=== PATIENT | female | born 1990 | race American Indian/Alaskan Native ===

== ENCOUNTER 2020-01-16 01:08 | Emergency (ER) | payer MEDICAID, OTHER ==
--- NOTE | 2020-01-16 01:15 | EDM.PDOC ---
ED HPI GENERAL MEDICAL PROBLEM - General Chief Complaint: Skin Complaint Stated Complaint: INFECTED RIGHT PINKY FINGER Time Seen by Provider: 01/16/20 01:14 Source of Information: Reports: Patient History Limitations: Reports: No Limitations - History of Present Illness INITIAL COMMENTS - FREE TEXT/NARRATIVE: pt has an infected small finger. She has cut her finger nails very short. Onset: Gradual, Other ( the inflamation on the rt small finger started several days ago. ) Duration: Hour(s): Location: Reports: Upper Extremity, Right Associated Symptoms: Reports: No Other Symptoms - Related Data Allergies Allergy/AdvReac Type Severity Reaction Status Date / Time acetaminophen [From [place]] Allergy Hives Verified 01/16/20 01:19 hydrocodone [From [place]] Allergy Hives Verified 01/16/20 01:19 Penicillins Allergy Hives Verified 01/16/20 01:19 Home Meds: Home Meds NK [No Known Home Meds] 01/16/20 [History] ED ROS GENERAL - Review of Systems Review Of Systems: See Below Constitutional: Reports: No Symptoms HEENT: Reports: No Symptoms Respiratory: Reports: No Symptoms Cardiovascular: Reports: No Symptoms Endocrine: Reports: No Symptoms GI/Abdominal: Reports: No Symptoms Musculoskeletal: Reports: Other ( red inflamed small finger. ) ED EXAM, SKIN/RASH Exam: See Below Text/Narrative:: pt has a red inflamed small finger on the rt. Exam Limited By: No Limitations General Appearance: Alert Extremities: Other (pt is very anxious. She has cut her nails very short and on the rt small finger she has a infected cuticle. ) Neurological: Alert, Oriented, Normal Cognition Course - Vital Signs Last Recorded V/S: Last Vital Signs Temp 36.2 C 01/16/20 01:18 Pulse 99 01/16/20 01:18 Resp 18 01/16/20 01:18 BP 152/86 H 01/16/20 01:18 Pulse Ox 96 01/16/20 01:18 - Orders/Labs/Meds Meds: Medications Discontinued Medications Generic Name Dose Route Start Last Admin Trade Name Freq PRN Reason Stop Dose Admin Bacitracin 1 dose 01/16/20 01:38 Bacitracin Oint 1 Gm TOP 01/16/20 01:39 ONETIME ONE Ibuprofen 800 mg 01/16/20 01:37 Motrin PO 01/16/20 01:38 ONETIME ONE Lidocaine HCl 5 ml 01/16/20 01:26 01/16/20 01:38 Xylocaine-Mpf 1% INJECT 01/16/20 01:27 5 ml ONETIME ONE Administration - Re-Assessments/Exams Free Text/Narrative Re-Assessment/Exam: 01/16/20 01:38 area at the base of the nail was injected with lidocaine and a fair amount of pus was expressed. Pt soaked the finger and it was dressed with bacatracin. Departure - Departure Time of Disposition: 01:39 Disposition: Home, Self-Care 01 Condition: Fair Clinical Impression: Infected cuticle - Discharge Information Instructions: Paronychia, [id number] Referrals: PCP,None [Primary Care Provider] - Forms: ED Department Discharge Care Plan Goals: soak the finger bid in a warm soapy solution, keep covered and dress with a antibiotic ointment. Motrin 600mg tid for pain, keflex 500mg tid. Use alot of yogurt or priobiotic while on the keflex. Sepsis Event Note - Focused Exam Vital Signs: Vital Signs Temp Pulse Resp BP Pulse Ox 01/16/20 01:18 36.2 C 99 18 152/86 H 96 Date Exam was Performed: 01/16/20 Time Exam was Performed: 01:43
[2020-01-16] MEDS ORDERED: Ibuprofen 800 MG Tab PO ONE (01:37)
[2020-01-16] MEDS ORDERED: Bacitracin Oint 1 GM U/D Packet TOP ONE (01:38)
== END 2020-01-16 01:54 | disposition home or self-care (01) ==
LOC: JP.ED 01:08
DX: L03.011 Cellulitis of right finger (principal); Z88.5 Allergy status to narcotic agent; Z88.0 Allergy status to penicillin; Z88.6 Allergy status to analgesic agent
CPT/HCPCS: 64450; 99283; A9270; J2001

== ENCOUNTER 2020-03-09 14:41 | Emergency (ER) | payer MEDICAID ==
[2020-03-09] MEDS ORDERED: HYDROmorphone 0.5 MG/0.5 ML Syringe IVPUSH ONE (15:48)
--- NOTE | 2020-03-09 15:52 | EDM.PDOC ---
ED HPI GENERAL MEDICAL PROBLEM - General Chief Complaint: Abdominal Pain Stated Complaint: UPPER ABD PAIN Time Seen by Provider: 03/09/20 15:51 Source of Information: Reports: Patient, RN, RN Notes Reviewed History Limitations: Reports: No Limitations - History of Present Illness INITIAL COMMENTS - FREE TEXT/NARRATIVE: 29 yo female presents to the ED with complaints of bilateral upper abd pain since 4 or 5 this morning. She has a history of crohns since age 14 and this pain feels different than any of her episodes of crohns flare-ups. The pain is colicky and most tender to RUQ. She describes them as menstrual cramps that get severe sharp and then eases off again. Last BM was yesterday and she states it was normal. She tried aleve for the pain and that helped some. 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: - Infectious Disease History Infectious Disease History: Reports: Chicken Pox - Past Surgical History Female Surgical History: Reports: Section Social & Family History - Tobacco Use Smoking Status *Q: Current Every Day Smoker Years of Tobacco use: 8 Packs/Tins Daily: 0.5 - Caffeine Use Caffeine Use: Reports: None - Recreational Drug Use Recreational Drug Use: No ED ROS GENERAL - Review of Systems Review Of Systems: See Below Constitutional: Reports: Decreased Appetite HEENT: Reports: No Symptoms Respiratory: Reports: No Symptoms Cardiovascular: Reports: No Symptoms Endocrine: Reports: No Symptoms GI/Abdominal: Reports: Abdominal Pain, Decreased Appetite : Reports: No Symptoms Musculoskeletal: Reports: No Symptoms Skin: Reports: No Symptoms Neurological: Reports: No Symptoms Psychiatric: Reports: No Symptoms Hematologic/Lymphatic: Reports: No Symptoms Immunologic: Reports: No Symptoms ED EXAM, GI/ABD - Physical Exam Exam: See Below Exam Limited By: No Limitations General Appearance: Alert, Mild Distress Respiratory/Chest: No Respiratory Distress, Lungs Clear, Normal Breath Sounds Cardiovascular: Normal Peripheral Pulses, Regular Rate, Rhythm, No Murmur GI/Abdominal Exam: Normal Bowel Sounds, Guarding, Tender (RUQ, epigastric, and some to RLQ and LLQ), Other (+ meza sign) (Female) Exam: Deferred Back Exam: Normal Inspection Extremities: Normal Inspection Neurological: Alert, Oriented Psychiatric: Normal Affect Skin Exam: Warm, Dry Course - Vital Signs Last Recorded V/S: Last Vital Signs Temp 97.4 F 03/09/20 15:31 Pulse 106 H 03/09/20 15:31 Resp 16 03/09/20 15:31 BP 116/83 03/09/20 15:31 Pulse Ox 100 03/09/20 15:31 - Orders/Labs/Meds Orders: Active Orders 24 hr Category Date Time Status Abdomen 2V AP Flat Upright [CR] Stat Exams 03/09/20 17:15 Taken Sodium Chloride 0.9% [Saline Flush] Med 03/09/20 15:48 Active 10 ml FLUSH ASDIRECTED PRN Saline Lock Insert [OM.PC] Routine Oth 03/09/20 15:48 Ordered Medication Orders Sodium Chloride (Saline Flush) 10 ml FLUSH ASDIRECTED PRN PRN Reason: Keep Vein Open Last Admin: 03/09/20 15:56 Dose: 10 ml Admin: 03/09/20 15:55 Dose: 10 ml Labs: Laboratory Tests 03/09/20 03/09/20 Range/Units 15:52 15:52 WBC 8.2 (4.5-11.0) K/uL RBC 4.03 (3.30-5.50) M/uL Hgb 12.3 (12.0-15.0) g/dL Hct 37.4 (36.0-48.0) % MCV 93 (80-98) fL MCH 31 (27-31) pg MCHC 33 (32-36) % Plt Count 187 (150-400) K/uL Neut % (Auto) 64 (36-66) % Lymph % (Auto) 23 L (24-44) % [place] % (Auto) 4 (2-6) % Eos % (Auto) 9 H (2-4) % Baso % (Auto) 0 (0-1) % Sodium 139 L (140-148) mmol/L Potassium 4.0 (3.6-5.2) mmol/L Chloride 104 (100-108) mmol/L Carbon Dioxide 30 (21-32) mmol/L Anion Gap 9.0 (5.0-14.0) mmol/L BUN 11 (7-18) mg/dL Creatinine 0.9 (0.6-1.0) mg/dL Est Cr Clr Drug Dosing 78.21 mL/min Estimated GFR (MDRD) > 60 (>60) Glucose 112 H (74-106) mg/dL Calcium 8.6 (8.5-10.1) mg/dL Total Bilirubin 0.3 (0.2-1.0) mg/dL AST 14 L (15-37) U/L ALT 25 (12-78) U/L Alkaline Phosphatase 45 L (46-116) U/L C-Reactive Protein 0.08 (0.0-0.3) mg/dL Total Protein 6.6 (6.4-8.2) g/dL Albumin 3.8 (3.4-5.0) g/dL Globulin 2.8 (2.3-3.5) g/dL Albumin/Globulin Ratio 1.4 (1.2-2.2) Lipase 51 L (73-393) U/L Meds: Medications Generic Name Dose Route Start Last Admin Trade Name Freq PRN Reason Stop Dose Admin Sodium Chloride 10 ml 03/09/20 15:48 03/09/20 15:56 Saline Flush FLUSH 10 ml ASDIRECTED PRN Administration Keep Vein Open Discontinued Medications Generic Name Dose Route Start Last Admin Trade Name Freq PRN Reason Stop Dose Admin Hydromorphone HCl 0.5 mg 03/09/20 15:48 03/09/20 15:54 Dilaudid IVPUSH 03/09/20 15:49 0.5 mg ONETIME ONE Administration - Radiology Interpretation Free Text/Narrative:: US negative for acute gallbladder. flat and upright xray shows stool and a gas pattern consistent with constipation - Re-Assessments/Exams Free Text/Narrative Re-Assessment/Exam: 03/09/20 17:18 patient is much more comfortable now after dilaudid. Abd is soft now. flat and upright ordered. Departure - Departure Time of Disposition: 17:34 Disposition: Home, Self-Care 01 Clinical Impression: Constipation - Discharge Information *PRESCRIPTION DRUG MONITORING PROGRAM REVIEWED*: Not Applicable *COPY OF PRESCRIPTION DRUG MONITORING REPORT IN PATIENT FRANCIS: Not Applicable Instructions: Constipation, Adult, [id number] Referrals: PCP,None [Primary Care Provider] - Forms: ED Department Discharge Additional Instructions: Your xray shows a moderate amount of stool and gas. Recommend using a capful of miralax daily until you have a sufficient bowel movement. Mix miralax with water or juice. Follow up with your PCP in 3-5 days if you are not better. Call or return to the ED with any worsening of symptoms. Sepsis Event Note (ED) - Evaluation Sepsis Screening Result: No Definite Risk - Focused Exam Vital Signs: Vital Signs Temp Pulse Resp BP Pulse Ox 03/09/20 15:31 97.4 F 106 H 16 116/83 100 03/09/20 15:14 97.4 F 106 H 16 116/83 100 - My Orders Last 24 Hours: My Active Orders 03/09/20 15:48 Sodium Chloride 0.9% [Saline Flush] 10 ml FLUSH ASDIRECTED PRN Saline Lock Insert [OM.PC] Routine 03/09/20 17:15 Abdomen 2V AP Flat Upright [CR] Stat - Assessment/Plan Last 24 Hours: My Active Orders 03/09/20 15:48 Sodium Chloride 0.9% [Saline Flush] 10 ml FLUSH ASDIRECTED PRN Saline Lock Insert [OM.PC] Routine 03/09/20 17:15 Abdomen 2V AP Flat Upright [CR] Stat Plan: discharge to home. recommend miralax for constipation.
[2020-03-09] MEDS: Sodium Chloride 0.9% 10 ML Syringe FLUSH PRN ×2 (15:55→15:56)
--- NOTE | 2020-03-09 16:48 | CRLUS ---
INDICATION: Right upper quadrant pain. COMPARISON: None available. TECHNIQUE: Ultrasound examination of the right upper quadrant was performed. FINDINGS: There is normal appearance of the gallbladder, with no sign of cholelithiasis or acute cholecystitis. There is no sign of gallbladder wall thickening or pericholecystic fluid. A sonographic Reid sign is not present, but the patient was given pain medication prior to the examination. The common bile duct is normal in caliber at 4 mm. The pancreatic head and body were examined, and these are normal in appearance. The abdominal aorta and visualized portions of the inferior vena cava are normal in appearance. The liver shows no sign of mass or contour abnormality, and there is no sign of ascites. The right kidney is unremarkable. IMPRESSION: Normal right upper quadrant ultrasound. Dictated by Ganesh South MD @ Mar 09 2020 4:45PM Signed by Dr. Ganesh South @ Mar 09 2020 4:46PM
--- NOTE | 2020-03-10 09:55 | CR ---
Abdomen 2V AP Flat Upright CLINICAL HISTORY: Abdominal pain FINDINGS: No free air is seen. Small intestinal configuration is nonacute. There is significant fecal retention throughout the colon. IMPRESSION: Nonacute intestinal gas pattern Moderate fecal retention
== END 2020-03-09 17:47 | disposition home or self-care (01) ==
LOC: JP.ED 14:41
DX: K59.00 Constipation, unspecified (principal); R10.11 Right upper quadrant pain; Z88.0 Allergy status to penicillin; Z88.5 Allergy status to narcotic agent; F17.210 Nicotine dependence, cigarettes, uncomplicated
CPT/HCPCS: 36415; 74019; 76705; 80053; 83690; 85025; 86140; 96374; 99284; J1170

== ENCOUNTER 2020-05-24 14:19 | Emergency (ER) | payer MEDICAID ==
[2020-05-24] MEDS ORDERED: Ketorolac 60 MG/2 ML SDV IM ONE (15:24)
--- NOTE | 2020-05-24 15:33 | EDM.PDOC ---
ED HPI GENERAL MEDICAL PROBLEM - General Chief Complaint: ENT Problem Time Seen by Provider: 05/24/20 15:19 Source of Information: Reports: Patient, RN Notes Reviewed History Limitations: Reports: No Limitations - History of Present Illness INITIAL COMMENTS - FREE TEXT/NARRATIVE: 30-year-old female presents emergency department a complaint of dental pain and facial swelling, she states she had a broken tooth started couple days ago since then she has had increasing pain and swelling no fevers has not been able to get into the dentist Face/Facial Pain Score (Numeric/FACES): 9 - Related Data Allergies Allergy/AdvReac Type Severity Reaction Status Date / Time acetaminophen [From [place]] Allergy Hives Verified 01/16/20 01:19 hydrocodone [From [place]] Allergy Hives Verified 01/16/20 01:19 Penicillins Allergy Hives Verified 01/16/20 01:19 Home Meds: Home Meds NK [No Known Home Meds] 01/16/20 [History] Past Medical History Gastrointestinal History: Reports: Other (See Below) Other Gastrointestinal History: 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: - Infectious Disease History Infectious Disease History: Reports: Chicken Pox - Past Surgical History Female Surgical History: Reports: Section Social & Family History - Tobacco Use Smoking Status *Q: Current Every Day Smoker Years of Tobacco use: 7 Packs/Tins Daily: 0.5 - Caffeine Use Caffeine Use: Reports: Soda - Recreational Drug Use Recreational Drug Use: No ED ROS ENT - Review of Systems Review Of Systems: See Below Constitutional: Reports: No Symptoms HEENT: Reports: Dental Pain ED EXAM, ENT - Physical Exam Exam: See Below Text/Narrative:: Mouth mucosa is moist and pink no erythema exudate known soft palate tongue is midline there is midline dentition is poor molars 18 and 19 are broken she is exquisitely tender to the touch in that area I do appreciate some facial swelling on that area as well Exam Limited By: No Limitations General Appearance: Alert, Mild Distress Neck: Normal Inspection, Supple, Non-Tender, Full Range of Motion Respiratory/Chest: No Respiratory Distress Course - Vital Signs Last Recorded V/S: Last Vital Signs Temp 97.5 F 05/24/20 14:53 Pulse 91 05/24/20 14:53 Resp 18 05/24/20 14:53 BP 151/107 H 08/31/20 14:53 Pulse Ox 100 05/24/20 14:53 - Orders/Labs/Meds Meds: Medications Discontinued Medications Generic Name Dose Route Start Last Admin Trade Name Meenakshi PRN Reason Stop Dose Admin Ketorolac Tromethamine 60 mg 05/24/20 15:24 Toradol IM 05/24/20 15:25 ONETIME ONE Departure - Departure Time of Disposition: 15:33 Disposition: Home, Self-Care 01 Condition: Fair (When she restricted but she has quite did that she is she has been a bad girl mad and that) Clinical Impression: Dental abscess - Discharge Information Instructions: Dental Abscess, [id number] Referrals: PCP,None [Primary Care Provider] - Additional Instructions: Please report to the dental clinic tomorrow morning at 830 Sepsis Event Note (ED) - Evaluation Sepsis Screening Result: No Definite Risk - Focused Exam Vital Signs: Vital Signs Temp Pulse Resp BP Pulse Ox 05/24/20 14:53 97.5 F 91 18 151/107 H 100 - Assessment/Plan Plan: Assessment Acuity = acute Site and laterality = dental abscess molars 18 and 19 Etiology = bacterial cause Manifestations = none Location of injury = Home Lab values = none Plan Given Toradol injection while in the emergency department prescription written for clindamycin 300 mg every 6 x7 days in combination with Percocet 5/325 1 tab p.o. 3 times daily PRN total #10, she is set up for a consultation with the dental clinic tomorrow morning at 830 This note was dictated using [employer] voice recognition software please call with any questions on syntax or grammar.
== END 2020-05-24 15:41 | disposition home or self-care (01) ==
LOC: JP.ED 14:19
DX: K04.7 Periapical abscess without sinus (principal); F17.210 Nicotine dependence, cigarettes, uncomplicated; Z88.0 Allergy status to penicillin; Z88.5 Allergy status to narcotic agent
CPT/HCPCS: 96372; 99282; J1885

== ENCOUNTER 2020-05-25 01:56 | Emergency (ER) | payer MEDICAID ==
[2020-05-25] MEDS ORDERED: Bupivacaine 0.5%/EPINEPHrine 1:200,000 1.8 ML Cartridge INJECT ONE (02:32)
[2020-05-25] MEDS ORDERED: Clindamycin HCl 150 MG Cap PO ONE (02:38)
[2020-05-25] MEDS ORDERED: Ketorolac 60 MG/2 ML SDV IM ONE (03:01)
[2020-05-25] MEDS ORDERED: Acetaminophen/oxyCODONE 325-5 MG Tab PO STA (03:02)
--- NOTE | 2020-05-25 03:08 | EDM.PDOC ---
ED HPI GENERAL MEDICAL PROBLEM - General Chief Complaint: ENT Problem Stated Complaint: TOOTHACHE Time Seen by Provider: 05/25/20 02:30 Source of Information: Reports: Patient, RN History Limitations: Reports: No Limitations - History of Present Illness INITIAL COMMENTS - FREE TEXT/NARRATIVE: 30 yo female restricted patient was recently seen for a dental infection and was given clindamycin and Percocet. Due to being restricted was not able to get the prescriptions filled. Recently moved here from [place]. Claims she didn't know she was restricted. No fever. Has L facial swelling. Has an appt with her dentist on Sunday. Onset: Gradual Duration: Day(s):, Getting Worse Location: Reports: Face (L mandible) Quality: Reports: Ache Severity: Severe Improves with: Reports: None Worsens with: Reports: Other (time) Context: Reports: Other (See HPI) Associated Symptoms: Reports: No Other Symptoms. 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 Tooth/Teeth Pain Score (Numeric/FACES): 9 - Related Data Allergies Allergy/AdvReac Type Severity Reaction Status Date / Time acetaminophen [From [place]] Allergy Hives Verified 05/25/20 02:17 hydrocodone [From [place]] Allergy Hives Verified 05/25/20 02:17 Penicillins Allergy Hives Verified 05/25/20 02:17 Home Meds: Home Meds Acetaminophen/oxyCODONE [Percocet 325-5 MG] 1 tab PO Q6H PRN 05/25/20 [History] Clindamycin HCl 300 mg PO QID 05/25/20 [History] Past Medical History - Past Health History Medical/Surgical History: Denies Medical/Surgical History Gastrointestinal History: Reports: Other (See Below) 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: - Infectious Disease History Infectious Disease History: Reports: Chicken Pox - Past Surgical History Female Surgical History: Reports: Section Social & Family History - Tobacco Use Smoking Status *Q: Current Every Day Smoker Years of Tobacco use: 7 Packs/Tins Daily: 0.2 Used Tobacco, but Quit: No Second Hand Smoke Exposure: Yes - Caffeine Use Caffeine Use: Reports: Soda - Alcohol Use Days Per Week of Alcohol Use: 0 - Recreational Drug Use Recreational Drug Use: Yes Recreational Drug Type: Reports: Marijuana/Hashish, Other (see below) 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 ED ROS ENT - Review of Systems Review Of Systems: See Below Constitutional: Reports: No Symptoms HEENT: Reports: Dental Pain, Other (L facial swelling) Respiratory: Reports: No Symptoms Cardiovascular: Reports: No Symptoms GI/Abdominal: Reports: No Symptoms : Reports: No Symptoms Musculoskeletal: Reports: No Symptoms Skin: Reports: No Symptoms Neurological: Reports: No Symptoms ED EXAM, ENT - Physical Exam Exam: See Below Exam Limited By: No Limitations General Appearance: Alert, WD/WN, No Apparent Distress, Obese Eye Exam: Bilateral Eye: Normal Inspection Ears: Normal External Exam, Normal Canal, Hearing Grossly Normal Nose: Normal Inspection, No Blood Mouth/Throat: Dental Abcess, Dental Pain, Dental Tenderness Head: Facial Swelling (left), Facial Tenderness (left) Neck: Normal Inspection Respiratory/Chest: No Respiratory Distress, Lungs Clear, Normal Breath Sounds, No Accessory Muscle Use Cardiovascular: Regular Rate, Rhythm, No Edema Extremities: Normal Inspection Neurological: Alert, Oriented, CN II-XII Intact, Normal Cognition, No Motor/Sensory Deficits Psychiatric: Normal Affect, Anxious Skin: Warm, Dry, Intact, Normal Color, No Rash Course - Vital Signs Last Recorded V/S: Last Vital Signs Temp 36.9 C 05/25/20 02:24 Pulse 113 H 05/25/20 02:24 Resp 22 H 05/25/20 02:24 BP 171/97 H 05/25/20 02:24 Pulse Ox 98 05/25/20 02:24 - Orders/Labs/Meds Orders: Active Orders 24 hr Category Date Time Status Acetaminophen/oxyCODONE [Percocet 325-5 MG] Med 05/25/20 03:02 Stat 1 tab PO ONETIME STA Ketorolac [Toradol] Med 05/25/20 03:01 Once 60 mg IM ONETIME ONE Meds: Medications Discontinued Medications Generic Name Dose Route Start Last Admin Trade Name Marquesq PRN Reason Stop Dose Admin Bupivacaine HCl/Epinephrine Bitart 1.8 ml 05/25/20 02:32 05/25/20 02:36 Marcaine 0.5%/Epinephrine 1:200,000 INJECT 05/25/20 02:33 1.8 ml ONETIME ONE Administration Clindamycin HCl 450 mg 05/25/20 02:38 05/25/20 02:51 Cleocin PO 05/25/20 02:39 450 mg ONETIME ONE Administration Departure - Departure Time of Disposition: 03:20 Disposition: Home, Self-Care 01 Condition: Fair Clinical Impression: Dental abscess - Discharge Information *PRESCRIPTION DRUG MONITORING PROGRAM REVIEWED*: No *COPY OF PRESCRIPTION DRUG MONITORING REPORT IN PATIENT FRANCIS: No Instructions: Dental Abscess, [id number] Referrals: PCP,None [Primary Care Provider] - Additional Instructions: Contact your provider first thing in the morning to discuss if you will be allowed to get your pain med and antibiotic prescriptions filled. Take ibuprofen 600 mg every 6 hrs starting after 6 hrs from now. Add acetaminophen up to 1000 mg every 6 hrs for added relief. It is very important to restart your clindamycin when pharmacies open in the morning. Sepsis Event Note (ED) - Evaluation Sepsis Screening Result: No Definite Risk - Focused Exam Vital Signs: Vital Signs Temp Pulse Resp BP Pulse Ox 05/25/20 02:24 36.9 C 113 H 22 H 171/97 H 98 05/25/20 02:09 36.9 C 113 H 22 H 171/97 H 98 - My Orders Last 24 Hours: My Active Orders 05/25/20 03:01 Ketorolac [Toradol] 60 mg IM ONETIME ONE 05/25/20 03:02 Acetaminophen/oxyCODONE [Percocet 325-5 MG] 1 tab PO ONETIME STA - Assessment/Plan Last 24 Hours: My Active Orders 05/25/20 03:01 Ketorolac [Toradol] 60 mg IM ONETIME ONE 05/25/20 03:02 Acetaminophen/oxyCODONE [Percocet 325-5 MG] 1 tab PO ONETIME STA
== END 2020-05-25 03:29 | disposition home or self-care (01) ==
LOC: JP.ED 01:56
DX: K04.7 Periapical abscess without sinus (principal); E66.9 Obesity, unspecified; F17.210 Nicotine dependence, cigarettes, uncomplicated; Z88.0 Allergy status to penicillin; Z88.5 Allergy status to narcotic agent; Z68.34 Body mass index [BMI] 34.0-34.9, adult
CPT/HCPCS: 96372; 99282; A9270; J1885; J3490

== ENCOUNTER 2020-10-16 18:09 | Emergency (ER) | payer MEDICAID ==
--- NOTE | 2020-10-16 18:46 | EDM.PDOC ---
ED HPI GENERAL MEDICAL PROBLEM - General Chief Complaint: Gastrointestinal Problem Stated Complaint: MEDICAL/ Time Seen by Provider: 10/16/20 18:30 Source of Information: Reports: Patient History Limitations: Reports: No Limitations - History of Present Illness INITIAL COMMENTS - FREE TEXT/NARRATIVE: 30-year-old female which is found out she was within the last 2 days has developed lower abdominal pain, somewhat worse on the left side. It is painful to walk, she has also developed some dysuria. No fevers or chills, no nausea or vomiting. She has not had a history of abdominal surgeries but does have Crohn's disease. Onset: Gradual Duration: Day(s): (Pain has increased just today, yesterday she was fine) Location: Reports: Abdomen (Lower abdomen) Associated Symptoms: Reports: Other (Dysuria and urgency). Denies: Fever/Chills, Nausea/Vomiting - Related Data Allergies Allergy/AdvReac Type Severity Reaction Status Date / Time acetaminophen [From [place]] Allergy Hives Verified 10/16/20 18:44 hydrocodone [From [place]] Allergy Hives Verified 10/16/20 18:44 Penicillins Allergy Hives Verified 10/16/20 18:44 Home Meds: Home Meds #103/Iron Fumarate/Fa [ ] 1 tab PO DAILY 10/16/20 [History] Past Medical History - Past Health History Medical/Surgical History: Denies Medical/Surgical History Respiratory History: Reports: Asthma Gastrointestinal History: Reports: Other (See Below) Other Gastrointestinal History: crohns Genitourinary History: Reports: None 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: Endocrine/Metabolic History: Reports: Obesity/BMI 30+ - Infectious Disease History Infectious Disease History: Reports: Chicken Pox - Past Surgical History Head Surgeries/Procedures: Reports: None Female Surgical History: Reports: Section Endocrine Surgical History: Reports: None Dermatological Surgical History: Reports: None Social & Family History - Tobacco Use Tobacco Use Status *Q: Current Every Day Tobacco User Years of Tobacco use: 15 Packs/Tins Daily: 0.5 Used Tobacco, but Quit: No - Caffeine Use Caffeine Use: Reports: Soda - Recreational Drug Use Recreational Drug Use: Yes Drug Use in Last 12 Months: No Recreational Drug Type: Reports: Cocaine, Heroin, Marijuana/Hashish, Methamphetamine ED ROS GENERAL - Review of Systems Review Of Systems: See Below Constitutional: Reports: Malaise. Denies: Fever, Chills HEENT: Reports: No Symptoms Respiratory: Denies: Shortness of Breath Cardiovascular: Denies: Chest Pain GI/Abdominal: Reports: Abdominal Pain, Other (History of Crohn's). Denies: Nausea, Vomiting : Reports: Dysuria, Urgency Neurological: Reports: No Symptoms ED EXAM, GI/ABD - Physical Exam Exam: See Below Exam Limited By: No Limitations General Appearance: Alert, No Apparent Distress (Looks uncomfortable but not di stressed) Eyes: Bilateral: Normal Appearance Head: Atraumatic Respiratory/Chest: No Respiratory Distress, Lungs Clear Cardiovascular: Regular Rate, Rhythm. No: Tachycardia GI/Abdominal Exam: Tender (Very tender to palpation over the lower abdomen, especially suprapubic and left lower quadrant) Neurological: Alert, Oriented Psychiatric: Normal Affect, Normal Mood Course - Vital Signs Last Recorded V/S: Last Vital Signs Temp 97.2 F 10/16/20 18:20 Pulse 94 10/16/20 18:20 Resp 16 10/16/20 18:20 BP 146/80 H 10/16/20 18:20 Pulse Ox 99 10/16/20 18:20 - Orders/Labs/Meds Orders: Active Orders 24 hr Category Date Time Status CULTURE URINE [RM] Stat Lab 10/16/20 19:39 Received Labs: Laboratory Tests 10/16/20 10/16/20 10/16/20 Range/Units 18:40 18:53 18:53 WBC 9.6 (4.5-11.0) K/uL RBC 4.42 (3.30-5.50) M/uL Hgb 13.7 (12.0-15.0) g/dL Hct 41.2 (36.0-48.0) % MCV 93 (80-98) fL MCH 31 (27-31) pg MCHC 33 (32-36) % Plt Count 213 (150-400) K/uL Neut % (Auto) 67 H (36-66) % Lymph % (Auto) 23 L (24-44) % [place] % (Auto) 6 (2-6) % Eos % (Auto) 4 (2-4) % Baso % (Auto) 0 (0-1) % Sodium 137 L (140-148) mmol/L Potassium 3.6 (3.6-5.2) mmol/L Chloride 99 L (100-108) mmol/L Carbon Dioxide 27 (21-32) mmol/L Anion Gap 14.6 H (5.0-14.0) mmol/L BUN 10 (7-18) mg/dL Creatinine 0.7 (0.6-1.0) mg/dL Est Cr Clr Drug Dosing 103.82 mL/min Estimated GFR (MDRD) > 60 (>60) Glucose 85 (74-106) mg/dL Calcium 9.4 (8.5-10.1) mg/dL Total Bilirubin 0.7 D (0.2-1.0) mg/dL AST 17 (15-37) U/L ALT 21 (12-78) U/L Alkaline Phosphatase 53 (46-116) U/L Total Protein 8.0 (6.4-8.2) g/dL Albumin 4.2 (3.4-5.0) g/dL Globulin 3.8 H (2.3-3.5) g/dL Albumin/Globulin Ratio 1.1 L (1.2-2.2) HCG, Quant 492 H (0-6) mIU/mL Urine Color Yellow (YELLOW) Urine Appearance Slightly cloudy A (CLEAR) Urine pH 6.5 (5.0-8.0) Ur Specific [place] 1.025 (1.008-1.030) Urine Protein Negative (NEGATIVE) mg/dL Urine Glucose (UA) Negative (NEGATIVE) mg/dL Urine Ketones 15 H (NEGATIVE) mg/dL Urine Occult Blood Moderate H (NEGATIVE) Urine Nitrite Negative (NEGATIVE) Urine Bilirubin Negative (NEGATIVE) Urine Urobilinogen 0.2 (0.2-1.0) EU/dL Ur Leukocyte Esterase Trace H (NEGATIVE) Urine RBC 5-10 H (0-5) Urine WBC 0-5 (0-5) Ur Epithelial Cells Many Amorphous Sediment Rare Urine Bacteria Many Urine Mucus Rare - Re-Assessments/Exams Free Text/Narrative Re-Assessment/Exam: 10/16/20 18:46 UA was obtained, also CBC CMP and quantitative beta-hCG. If the level is high enough, an ultrasound may be needed to rule out ectopic on the left. 10/16/20 19:36 CBC is normal, UA shows many bacteria and some WBCs. Quantitative beta-hCG is only 490, the patient thinks she is roughly 6 to 7 weeks gestation so this could be some early pain from a developing miscarriage. She will be placed on Macrobid for the UTI, a culture obtained, and if symptoms persist or worsen she should recheck her beta-hCG level in 2 to 3 days. She may just vaginal bleeding and miscarriage, if that is the case no follow-up absolutely necessary, she may just let the process develop. I recommended some ibuprofen for discomfort. Departure - Departure Time of Disposition: 19:42 Disposition: Home, Self-Care 01 Clinical Impression: Lower abdominal pain, Early stage of UTI (urinary tract infection) Qualifiers: Urinary tract infection type: acute cystitis Hematuria presence: without hematuria Qualified Code(s): N30.00 - Acute cystitis without hematuria - Discharge Information Instructions: Urinary Tract Infection, Adult Referrals: PCP,None [Primary Care Provider] - Forms: ED Department Discharge Care Plan Goals: Take antibiotic twice daily as prescribed, ibuprofen will help with cramping and pain and return in 2 to 3 days if not improving for recheck of blood work. Return sooner if worsening such as developing fever, increased pain or other concerns. Sepsis Event Note (ED) - Evaluation Sepsis Screening Result: No Definite Risk - Focused Exam Vital Signs: Vital Signs Temp Pulse Resp BP Pulse Ox 10/16/20 18:20 97.2 F 94 16 146/80 H 99 10/16/20 18:19 97.2 F 94 16 146/80 H 99 - My Orders Last 24 Hours: My Active Orders 10/16/20 19:39 CULTURE URINE [RM] Stat - Assessment/Plan Last 24 Hours: My Active Orders 10/16/20 19:39 CULTURE URINE [RM] Stat
== END 2020-10-16 19:59 | disposition home or self-care (01) ==
LOC: JP.ED 18:09
DX: O23.11 Infections of bladder in pregnancy, first trimester (principal); J45.909 Unspecified asthma, uncomplicated; E66.9 Obesity, unspecified; Z72.0 Tobacco use; Z68.32 Body mass index [BMI] 32.0-32.9, adult; Z88.6 Allergy status to analgesic agent; Z88.5 Allergy status to narcotic agent; Z88.0 Allergy status to penicillin
CPT/HCPCS: 36415; 80053; 81001; 84702; 85025; 87086; 99283; 99284

== ENCOUNTER 2021-06-16 10:50 | Inpatient (IN) | payer MEDICAID ==
[2021-06-16] MEDS ORDERED: Methylergonovine 0.2 MG/1 ML Amp ONE (10:57)
[2021-06-16] MEDS ORDERED: Misoprostol 200 MCG Tab ONE (10:57)
[2021-06-16] MEDS ORDERED: Carboprost Tromethamine 250 MCG/1 ML Amp ONE (10:57)
[2021-06-16] MEDS ORDERED: Methylergonovine 0.2 MG/1 ML Amp IM ONE (11:00)
[2021-06-16] MEDS ORDERED: Misoprostol 200 MCG Tab RECTAL ONE (11:18)
[2021-06-16] MEDS ORDERED: Sodium Chloride 0.9% 10 ML Syringe FLUSH PRN (11:27)
[2021-06-16] MEDS ORDERED: Tranexamic Acid 1,000 MG in Sodium Chloride 0.9% 50 ML IV ONE (12:00)
--- NOTE | 2021-06-16 12:09 | PCM.LDHP ---
<Almaz Zavala - Last Filed: 06/16/21 12:25> L&D History of Present Illness - General Date of Service: 06/16/21 Admit Problem/Dx: Patient Status Order with Admit Dx/Problem 06/16/21 11:27 Patient Status [ADT] Routine Admission Diagnosis/Problem Admission Diagnosis/Problem Source of Information: Patient History Limitations: Reports: No Limitations - History of Present Illness Introduction:: 06/16/21 Amita came in today around 10:300 after leaving AMA from triage last night. She was in triage because she was kenzie and feeling shortness of breath and chest pain after smoking "bad weed". She has an unknown amount of care, she states the last time she saw a provider was for her 20 week anatomy scan which she states was normal. She believes she is 38 weeks and states that she has not used any drugs since last night. Currently she is in active labor, SVE for 10cm with a bulging bag of water. AROM for mec stained fluid. - Related Data Allergies/Adverse Reactions: Allergies Allergy/AdvReac Type Severity Reaction Status Date / Time acetaminophen [From [place]] Allergy Hives Verified 10/16/20 18:44 hydrocodone [From [place]] Allergy Hives Verified 10/16/20 18:44 Penicillins Allergy Hives Verified 10/16/20 18:44 Home Medications: Home Meds #103/Iron Fumarate/Fa [ ] 1 tab PO DAILY 10/16/20 [History] Past Medical History - Past Health History Medical/Surgical History: Denies Medical/Surgical History Respiratory History: Reports: Asthma Gastrointestinal History: Reports: Other (See Below) Other Gastrointestinal History: crohns Genitourinary History: Reports: None [employer]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: Endocrine/Metabolic History: Reports: Obesity/BMI 30+ - Infectious Disease History Infectious Disease History: Reports: Chicken Pox - Past Surgical History Head Surgeries/Procedures: Reports: None Female Surgical History: Reports: Section Endocrine Surgical History: Reports: None Dermatological Surgical History: Reports: None Social & Family History - Caffeine Use Caffeine Use: Reports: Soda H&P Review of Systems - Review of Systems: Review Of Systems: See Below General: Reports: No Symptoms HEENT: Reports: No Symptoms Pulmonary: Reports: No Symptoms Cardiovascular: Reports: No Symptoms Gastrointestinal: Reports: No Symptoms Genitourinary: Reports: No Symptoms Musculoskeletal: Reports: No Symptoms Skin: Reports: No Symptoms Psychiatric: Reports: No Symptoms Neurological: Reports: No Symptoms Hematologic/Lymphatic: Reports: No Symptoms Immunologic: Reports: No Symptoms L&D Exam - Exam Exam: See Below - OB Specific Contraction Intensity: Strong Movement: Not Appreciated Heart Tones: Not [place] (unable to trace FHT with precipitous delivery) - Exam General: Alert, Oriented, Severe Distress HEENT: PERRLA, Conjunctiva Clear, EOMI, Hearing Intact, Mucosa Moist & [place], Nares Patent Neck: Supple Lungs: Normal Respiratory Effort Cardiovascular: Regular Rate GI/Abdominal Exam: Non-Tender Rectal Exam: Normal Exam Genitourinary: Normal external exam Back Exam: Full Range of Motion Extremities: Normal Range of Motion, No Pedal Edema Skin: Warm, Dry, Intact Neurological: Cranial Nerves Intact Psychiatric: Alert, Normal Affect, Normal Mood - Patient Data Lab Results Last 24 hrs: Laboratory Results - last 24 hr 06/16/21 Range/Units 11:27 WBC 11.9 H (4.5-11.0) K/uL RBC 3.63 (3.30-5.50) M/uL Hgb 10.7 L D (12.0-15.0) g/dL Hct 32.1 L (36.0-48.0) % MCV 88 (80-98) fL MCH 30 (27-31) pg MCHC 33 (32-36) % Plt Count 203 (150-400) K/uL Neut % (Auto) 74.5 H (36-66) % Lymph % (Auto) 20.2 L (24-44) % [place] % (Auto) 4.7 (2-6) % Eos % (Auto) 0.5 L (2-4) % Baso % (Auto) 0.1 (0-1) % Result Diagrams: 06/16/21 11:27 - Problem List (1) SNOMED Code(s): 35258051 ICD Code: Z34.90 - ENCNTR FOR SUPRVSN OF NORMAL , UNSP, UNSP TRIMESTER Status: Acute Current Visit: Yes Qualifiers: Weeks of gestation: 38 weeks Qualified Code(s): Z3A.38 - 38 weeks gestation of (2) Limited care in third trimester SNOMED Code(s): 491739222, 505974636 ICD Code: O09.33 - SUPRVSN OF PREG W INSUFFICIENT ANTENAT CARE, THIRD TRIMESTER Status: Acute Current Visit: Yes (3) Drug use affecting in third trimester SNOMED Code(s): 79929150, 31304245, 447258490 ICD Code: O99.323 - DRUG USE COMPLICATING , THIRD TRIMESTER Status: Acute Current Visit: Yes Problem List Initiated/Reviewed/Updated: Yes Orders Last 24hrs: Active Orders 24 hr Category Date Time Status Patient Status [ADT] Routine ADT 06/16/21 11:27 Active Communication Order [RC] ASDIRECTED Care 06/16/21 11:27 Active Heart Tones [RC] PER UNIT ROUTINE Care 06/16/21 11:27 Active Non Stress Test [RC] Click to Edit Care 06/16/21 11:27 Active Notify Provider Vital Signs [RC] PRN Care 06/16/21 11:27 Active Notify Provider [RC] PRN Care 06/16/21 11:27 Active Up ad [place] [RC] ASDIRECTED Care 06/16/21 11:27 Active Vital Signs [RC] PER UNIT ROUTINE Care 06/16/21 11:27 Active DRUG SCREEN, URINE [URCHEM] Urgent Lab 06/16/21 11:27 Ordered RED BLOOD CELLS LP [BBK] Routine Lab 06/16/21 11:07 Received TYPE AND SCREEN [BBK] Routine Lab 06/16/21 11:07 Received UA W/MICROSCOPIC [URIN] Urgent Lab 06/16/21 11:27 Ordered Oxytocin/Normal Saline [Pitocin in NS 20 Units/1,000 ML Med 06/16/21 11:30 Active ] 20 unit in 1,000 ml IV TITRATE Sodium Chloride 0.9% [Saline Flush] Med 06/16/21 11:27 Active 10 ml FLUSH ASDIRECTED PRN Saline Lock Insert [OM.PC] Routine Oth 06/16/21 11:27 Ordered Resuscitation Status Routine Resus Stat 06/16/21 11:27 Ordered Medication Orders Oxytocin/Sodium Chloride (Pitocin In Ns 20 Units/1,000 Ml) 20 unit in 1,000 mls @ 2,997 mls/hr IV TITRATE JENNIFER; Protocol Sodium Chloride (Sodium Chloride 0.9% 10 Ml Syringe) 10 ml FLUSH ASDIRECTED PRN PRN Reason: Keep Vein Open Assessment/Plan Comment:: 06/16/21 Assessment: 31 year old GP at 38 weeks gestation per pt Limited care Mother admits to THC use in last 24 hours Active labor progressing rapidly Mec stained fluid at AROM Plan: Anticipate precipitous vaginal delivery Type and screen, CBC and COVID swab on admit Continuous EFM <Trixie Cardoza - Last Filed: 06/16/21 12:34> L&D History of Present Illness - General Admit Problem/Dx: Patient Status Order with Admit Dx/Problem 06/16/21 11:27 Patient Status [ADT] Routine Admission Diagnosis/Problem Admission Diagnosis/Problem - Patient Data Lab Results Last 24 hrs: Laboratory Results - last 24 hr 06/16/21 06/16/21 Range/Units 11:07 11:27 WBC 11.9 H (4.5-11.0) K/uL RBC 3.63 (3.30-5.50) M/uL Hgb 10.7 L D (12.0-15.0) g/dL Hct 32.1 L (36.0-48.0) % MCV 88 (80-98) fL MCH 30 (27-31) pg MCHC 33 (32-36) % Plt Count 203 (150-400) K/uL Neut % (Auto) 74.5 H (36-66) % Lymph % (Auto) 20.2 L (24-44) % [place] % (Auto) 4.7 (2-6) % Eos % (Auto) 0.5 L (2-4) % Baso % (Auto) 0.1 (0-1) % Blood Type A POSITIVE Gel Antibody Screen Negative Crossmatch See Detail Result Diagrams: 06/16/21 11:27 - Problem List (1) Social problem SNOMED Code(s): 400991517 ICD Code: Z65.9 - PROBLEM RELATED TO UNSPECIFIED PSYCHOSOCIAL CIRCUMSTANCES Status: Acute Current Visit: Yes (2) Meconium in amniotic fluid SNOMED Code(s): 474550615 ICD Code: P96.83 - MECONIUM STAINING Status: Acute Current Visit: Yes (3) Drug use affecting in third trimester SNOMED Code(s): 01649610, 14927986, 804112153 ICD Code: O99.323 - DRUG USE COMPLICATING , THIRD TRIMESTER Status: Acute Current Visit: Yes (4) Limited care in third trimester SNOMED Code(s): 589242393, 110864793 ICD Code: O09.33 - SUPRVSN OF PREG W INSUFFICIENT ANTENAT CARE, THIRD TRIMESTER Status: Acute Current Visit: Yes (5) SNOMED Code(s): 62185513 ICD Code: Z34.90 - ENCNTR FOR SUPRVSN OF NORMAL , UNSP, UNSP TRIMESTER Status: Acute Current Visit: Yes Qualifiers: Weeks of gestation: 38 weeks Qualified Code(s): Z3A.38 - 38 weeks gestation of Problem List Initiated/Reviewed/Updated: Yes Orders Last 24hrs: Active Orders 24 hr Category Date Time Status Patient Status [ADT] Routine ADT 06/16/21 11:27 Active Communication Order [RC] ASDIRECTED Care 06/16/21 11:27 Active Heart Tones [RC] PER UNIT ROUTINE Care 06/16/21 11:27 Active Non Stress Test [RC] Click to Edit Care 06/16/21 11:27 Active Notify Provider Vital Signs [RC] PRN Care 06/16/21 11:27 Active Notify Provider [RC] PRN Care 06/16/21 11:27 Active Up ad [place] [RC] ASDIRECTED Care 06/16/21 11:27 Active Vital Signs [RC] PER UNIT ROUTINE Care 06/16/21 11:27 Active CORONAVIRUS COVID-19 RAPID [MOLEC] Routine Lab 06/16/21 12:04 Ordered DRUG SCREEN, URINE [URCHEM] Urgent Lab 06/16/21 11:27 Ordered PATIENT RETYPE [BBK] Routine Lab 06/16/21 11:07 Results RED BLOOD CELLS LP [BBK] Routine Lab 06/16/21 11:07 Results TYPE AND SCREEN [BBK] Routine Lab 06/16/21 11:07 Results UA W/MICROSCOPIC [URIN] Urgent Lab 06/16/21 11:27 Ordered Ibuprofen [Motrin] Med 06/16/21 12:26 Active 600 mg PO Q8H PRN Oxytocin/Normal Saline [Pitocin in NS 20 Units/1,000 ML Med 06/16/21 11:30 Active ] 20 unit in 1,000 ml IV TITRATE Sodium Chloride 0.9% [Saline Flush] Med 06/16/21 11:27 Active 10 ml FLUSH ASDIRECTED PRN Saline Lock Insert [OM.PC] Routine Oth 06/16/21 11:27 Ordered Resuscitation Status Routine Resus Stat 06/16/21 11:27 Ordered Medication Orders Oxytocin/Sodium Chloride (Pitocin In Ns 20 Units/1,000 Ml) 20 unit in 1,000 mls @ 2,997 mls/hr IV TITRATE JENNIFER; Protocol Last Admin: 06/16/21 10:55 Dose: 999 munits/min, 2,997 mls/hr Documented by: CHARBEL Ibuprofen (Ibuprofen 600 Mg Tab) 600 mg PO Q8H PRN PRN Reason: Pain Sodium Chloride (Sodium Chloride 0.9% 10 Ml Syringe) 10 ml FLUSH ASDIRECTED PRN PRN Reason: Keep Vein Open Assessment/Plan Comment:: 06/16/2021 NAYA Webster participated in assessment and admission of patient, I was in attendance for all assessments and procedures and attest that I reviewed the delivery report and documentation and it is accurate as written. Trixie Cardoza [id number]
[2021-06-16] MEDS ORDERED: Ibuprofen 600 MG Tab PO PRN (12:26)
[2021-06-16] MEDS ORDERED: Witch Hazel Medicated Pads 100/Jar TOP ONE (12:44)
[2021-06-16] MEDS ORDERED: Acetaminophen 325 MG Tab PO PRN (12:44)
[2021-06-16] MEDS ORDERED: Lanolin 100% Cream 40 GM Tube TOP ONE (12:44)
[2021-06-16] MEDS ORDERED: Benzocaine 20% Top Spray 56 GM Bottle TOP PRN (12:44)
[2021-06-16] MEDS ORDERED: Acetaminophen 325 MG Tab PO SCH (12:45)
--- NOTE | 2021-06-16 14:51 | PCM.DEL ---
L & D Note - General Info Date of Service: 06/16/21 - Delivery Note Labor: Spontaneous Delivery Outcome: Livebirth Delivery Method: Spontaneous Vaginal Delivery-Single Delivery Mode: Spontaneous Presentation: Vertex Nuchal Cord: Present, Reduced Anesthesia Type: None Amniotic Fluid Description: Meconium Stained Episiotomy Type: None Laceration: 1st Degree Placenta: Intact, Spontaneous, Clot Cord: 3 Vessels Estimated Blood Loss: 1,000 Resuscitation Needed: No : Bulb Syringe, Stimulated, Warmed, [place] Used Provider: Trixie Cardoza (Jet Almaraz assisted) Score 1 min: 8 Score 5 min: 9 Post Delivery Events: Hemorrhage Second Stage Interventions: Reports: Second Nurse Assessed Progress of Descent, Encouragement Given, Pushing Effectively, Pushing Involuntarily, Pushing, McRobert's Position Delivery Comments (Free Text/Narrative):: 06/16/2021 31 yo at suspected 38 5/7 gestational weeks came in laboring after leaving AMA earlier in am. She came into labor and delivery complete with bulging bag of fluid coming out of vaginal opening. Patient admitted to using marijuana during the night and states it was "bad weed". She thinks her labor started sometime around when she came in initially during the night. At this time she is now out of control, screaming in pain, not cooperative. With the help of nurses we were able get her to allow an SVE by provider, AROM was completed with meconium fluid. Patient then began to yell out and we directed her to push. Patient proceeded to crawl back in the bed making a poor leah for delivery of the head. Once head was delivered it was noted to have a nuchal cord times one, which was easily reduced. Then due to position of mom and cooperation of mother the shoulders would not restitute to come under the pelvis, with Alecia and Suprapubic the shoulder released and infant was delivered, cord was double clamped and cut then infant was brought to warmer for initial assessment. Second provider was in room to assist along with multiple other staff. After infant was delivered patient began to bleed heavily. tension was put on the umbilical cord and uterine massage to get placenta out. Placenta came believed to be intact, was meconium stained, with large clots and trickle of blood after. Bleed continued to be a slow trickle, patient was still not being cooperative or allowing us to do a vaginal exam. Pitocin was started IV wide open, hemorrhage kit was pulled, patient continued to bleed, fundal massage done, methergine given, cytotec given all per protocol. Inspected vaginal vault with manual and large clots removed. Bleeding began to slow with this and fundal massage. Patient still would not allow a vaginal inspection, was believed to have at least a perineal laceration but patient would not allow us to repair or inspect for any other lacerations. Since bleeding had slowed was brought to mother of to hold. Weight done of all bleeding that was not on floor or bed-Total EBL during entire time was approximately-1750ml. APGARS-8/9, weight-7lbs 4oz, length-19.5 inches, three vessel cord, unsure of lacerations due to patient refusal to inspect. Stages of labor- [id number] - General Info Date of Service: 06/16/21 Functional Status: Reports: Pain Controlled - Review of Systems General: Reports: No Symptoms HEENT: Reports: No Symptoms Pulmonary: Reports: No Symptoms Cardiovascular: Reports: No Symptoms Gastrointestinal: Reports: No Symptoms Genitourinary: Reports: No Symptoms Musculoskeletal: Reports: No Symptoms Skin: Reports: No Symptoms Neurological: Reports: No Symptoms Psychiatric: Reports: No Symptoms - Patient Data Vitals - Most Recent: Last Vital Signs Temp 37.4 C 06/16/21 13:00 Pulse 110 H 06/16/21 13:00 Resp 18 06/16/21 13:00 BP 127/80 06/16/21 12:18 Pulse Ox 100 06/16/21 13:00 Weight - Most Recent: 136.078 kg Lab Results Last 24 Hours: Laboratory Results - last 24 hr 06/16/21 06/16/21 06/16/21 Range/Units 11:07 11:27 11:27 WBC (4.5-11.0) K/uL RBC (3.30-5.50) M/uL Hgb (12.0-15.0) g/dL Hct (36.0-48.0) % MCV (80-98) fL MCH (27-31) pg MCHC (32-36) % Plt Count (150-400) K/uL Neut % (Auto) (36-66) % Lymph % (Auto) (24-44) % [place] % (Auto) (2-6) % Eos % (Auto) (2-4) % Baso % (Auto) (0-1) % Urine Color Red A (YELLOW) Urine Appearance Cloudy A (CLEAR) Urine pH 6.5 (5.0-8.0) Ur Specific [place] >= 1.030 (1.008-1.030) Urine Protein >=300 H (NEGATIVE) mg/dL Urine Glucose (UA) 100 H (NEGATIVE) mg/dL Urine Ketones 40 H (NEGATIVE) mg/dL Urine Occult Blood Large H (NEGATIVE) Urine Nitrite Negative (NEGATIVE) Urine Bilirubin Small H (NEGATIVE) Urine Urobilinogen 0.2 (0.2-1.0) EU/dL Ur Leukocyte Esterase Negative (NEGATIVE) Urine RBC Packed H (0-5) Urinalysis Comment Urine Opiates Screen Negative (NEGATIVE) Ur Oxycodone Screen Negative (NEGATIVE) Urine Methadone Screen Presumptive positive H (NEGATIVE) Ur Propoxyphene Screen Negative (NEGATIVE) Ur Barbiturates Screen Negative (NEGATIVE) Ur Tricyclics Screen Presumptive positive H (NEGATIVE) Ur Phencyclidine Scrn Negative (NEGATIVE) Ur Amphetamine Screen Presumptive positive H (NEGATIVE) U Methamphetamines Scrn Presumptive positive H (NEGATIVE) Urine MDMA Screen Negative (NEGATIVE) U Benzodiazepines Scrn Negative (NEGATIVE) U Cocaine Metab Screen Negative (NEGATIVE) U Marijuana (THC) Screen Presumptive positive H (NEGATIVE) SARS CoV-2 RNA Rapid DERIK Blood Type A POSITIVE Gel Antibody Screen Negative Crossmatch See Detail 06/16/21 06/16/21 Range/Units 11:27 12:04 WBC 11.9 H (4.5-11.0) K/uL RBC 3.63 (3.30-5.50) M/uL Hgb 10.7 L D (12.0-15.0) g/dL Hct 32.1 L (36.0-48.0) % MCV 88 (80-98) fL MCH 30 (27-31) pg MCHC 33 (32-36) % Plt Count 203 (150-400) K/uL Neut % (Auto) 74.5 H (36-66) % Lymph % (Auto) 20.2 L (24-44) % [place] % (Auto) 4.7 (2-6) % Eos % (Auto) 0.5 L (2-4) % Baso % (Auto) 0.1 (0-1) % Urine Color (YELLOW) Urine Appearance (CLEAR) Urine pH (5.0-8.0) Ur Specific [place] (1.008-1.030) Urine Protein (NEGATIVE) mg/dL Urine Glucose (UA) (NEGATIVE) mg/dL Urine Ketones (NEGATIVE) mg/dL Urine Occult Blood (NEGATIVE) Urine Nitrite (NEGATIVE) Urine Bilirubin (NEGATIVE) Urine Urobilinogen (0.2-1.0) EU/dL Ur Leukocyte Esterase (NEGATIVE) Urine RBC (0-5) Urinalysis Comment Urine Opiates Screen (NEGATIVE) Ur Oxycodone Screen (NEGATIVE) Urine Methadone Screen (NEGATIVE) Ur Propoxyphene Screen (NEGATIVE) Ur Barbiturates Screen (NEGATIVE) Ur Tricyclics Screen (NEGATIVE) Ur Phencyclidine Scrn (NEGATIVE) Ur Amphetamine Screen (NEGATIVE) U Methamphetamines Scrn (NEGATIVE) Urine MDMA Screen (NEGATIVE) U Benzodiazepines Scrn (NEGATIVE) U Cocaine Metab Screen (NEGATIVE) U Marijuana (THC) Screen (NEGATIVE) SARS CoV-2 RNA Rapid DERIK Negative Blood Type Gel Antibody Screen Crossmatch Med Orders - Current: Current Medications Acetaminophen (Acetaminophen 325 Mg Tab) 650 mg PO DAILY [facility] Last Admin: 06/16/21 13:50 Dose: Not Given Documented by: Acetaminophen (Acetaminophen 325 Mg Tab) 650 mg PO Q4H PRN PRN Reason: mild pain or fever Benzocaine (Benzocaine 20% Top [place] 56 Gm Bottle) 0 gm TOP Q4H PRN PRN Reason: PERINEAL PAIN Oxytocin/Sodium Chloride (Pitocin In Ns 20 Units/1,000 Ml) 20 unit in 1,000 mls @ 2,997 mls/hr IV TITRATE JENNIFER; Protocol Last Admin: 06/16/21 10:55 Dose: 999 munits/min, 2,997 mls/hr Documented by: Ibuprofen (Ibuprofen 600 Mg Tab) 600 mg PO Q8H PRN PRN Reason: Pain Sodium Chloride (Sodium Chloride 0.9% 10 Ml Syringe) 10 ml FLUSH ASDIRECTED PRN PRN Reason: Keep Vein Open Discontinued Medications Carboprost Tromethamine (Carboprost Tromethamine 250 Mcg/1 Ml Amp) Confirm Administered Dose 250 mcg .ROUTE .STK-MED ONE Stop: 06/16/21 10:58 Last Admin: 06/16/21 11:25 Dose: Not Given Documented by: Emollient Ointment (Lanolin 100% Cream 40 Gm Tube) 1 gm TOP ONETIME ONE Stop: 06/16/21 12:45 Last Admin: 06/16/21 13:50 Dose: Not Given Documented by: Oxytocin/Sodium Chloride (Pitocin In Ns 20 Units/1,000 Ml) Confirm Administered Dose 20 unit in 1,000 mls @ as directed .ROUTE .STK-MED ONE Stop: 06/16/21 10:56 Last Admin: 06/16/21 11:24 Dose: Not Given Documented by: Tranexamic Acid 1,000 mg/ (Sodium Chloride) 60 mls @ 240 mls/hr IV ONETIME ONE Stop: 06/16/21 12:14 Last Admin: 06/16/21 12:13 Dose: 240 mls/hr Documented by: Methylergonovine Maleate (Methylergonovine 0.2 Mg/1 Ml Amp) Confirm Administered Dose 0.2 mg .ROUTE .STK-MED ONE Stop: 06/16/21 10:58 Last Admin: 06/16/21 11:25 Dose: Not Given Documented by: Methylergonovine Maleate (Methylergonovine 0.2 Mg/1 Ml Amp) 0.2 mg IM ONETIME ONE Stop: 06/16/21 11:01 Last Admin: 06/16/21 12:12 Dose: 0.2 mg Documented by: Misoprostol (Misoprostol 200 Mcg Tab) Confirm Administered Dose 800 mcg .ROUTE .STK-MED ONE Stop: 06/16/21 10:58 Last Admin: 06/16/21 11:24 Dose: Not Given Documented by: Misoprostol (Misoprostol 200 Mcg Tab) 800 mcg RECTAL ONETIME ONE Stop: 06/16/21 11:19 Last Admin: 06/16/21 12:12 Dose: 800 mcg Documented by: Neha Bridges (Neha Bridges Medicated Pads 100/Jar) 1 pad TOP ONETIME ONE Stop: 06/16/21 12:45 Last Admin: 06/16/21 13:50 Dose: Not Given Documented by: - Exam General: Alert, Oriented HEENT: Pupils Equal, Pupils Reactive, EOMI, Mucous Membr. Moist/[place] Neck: Supple Lungs: Clear to Auscultation, Normal Respiratory Effort Cardiovascular: Regular Rate, Regular Rhythm GI/Abdominal Exam: Normal Bowel Sounds, Soft, Non-Tender, No Organomegaly, No Distention, No Abnormal Bruit, No Mass, Pelvis Stable (Female) Exam: Normal External Exam, Normal Speculum Exam, Normal Bimanual Exam Back Exam: Normal Inspection, Full Range of Motion Extremities: Normal Inspection, Normal Range of Motion, Non-Tender, No Pedal Edema, Normal Capillary Refill Skin: Warm, Dry, Intact Neurological: No New Focal Deficit Psy/Mental Status: Alert, Normal Affect, Normal Mood - Problem List & Annotations (1) Social problem SNOMED Code(s): 386258885 Code(s): Z65.9 - PROBLEM RELATED TO UNSPECIFIED PSYCHOSOCIAL CIRCUMSTANCES Status: Acute Current Visit: Yes (2) Meconium in amniotic fluid SNOMED Code(s): 588102681 Code(s): P96.83 - MECONIUM STAINING Status: Acute Current Visit: Yes (3) Drug use affecting in third trimester SNOMED Code(s): 51717211, 44011479, 222055206 Code(s): O99.323 - DRUG USE COMPLICATING , THIRD TRIMESTER Status: Acute Current Visit: Yes (4) Limited care in third trimester SNOMED Code(s): 158613922, 536820478 Code(s): O09.33 - SUPRVSN OF PREG W INSUFFICIENT ANTENAT CARE, THIRD TRIMESTER Status: Acute Current Visit: Yes (5) SNOMED Code(s): 99933303 Code(s): Z34.90 - ENCNTR FOR SUPRVSN OF NORMAL , UNSP, UNSP TRIMESTER Status: Acute Current Visit: Yes Qualifiers: Weeks of gestation: 38 weeks Qualified Code(s): Z3A.38 - 38 weeks gestation of (6) Drug abuse and dependence SNOMED Code(s): 1368445 Code(s): F19.20 - OTHER PSYCHOACTIVE SUBSTANCE DEPENDENCE, UNCOMPLICATED Status: Acute Current Visit: Yes (7) History of SNOMED Code(s): 589816793 Code(s): Z87.59 - PERSONAL HISTORY OF COMP OF PREG, CHLDBRTH AND THE PUERP Status: Acute Current Visit: Yes (8) hemorrhage, delivered SNOMED Code(s): 87761499, 683344499 Code(s): O72.1 - OTHER IMMEDIATE HEMORRHAGE Status: Acute Current Visit: Yes (9) (vaginal after ) SNOMED Code(s): 401045316 Code(s): O34.219 - MATERNAL CARE FOR UNSP TYPE SCAR FROM PREVIOUS DEL Status: Acute Current Visit: Yes - Problem List Review Problem List Initiated/Reviewed/Updated: Yes - My Orders Last 24 Hours: My Active Orders 06/16/21 11:07 PATIENT RETYPE [BBK] Routine RED BLOOD CELLS LP [BBK] Routine TYPE AND SCREEN [BBK] Routine 06/16/21 11:27 Patient Status [ADT] Routine Communication Order [RC] ASDIRECTED Non Stress Test [RC] Click to Edit Notify Provider Vital Signs [RC] PRN Notify Provider [RC] PRN Up ad [place] [RC] ASDIRECTED Vital Signs [RC] PER UNIT ROUTINE Sodium Chloride 0.9% [Saline Flush] 10 ml FLUSH ASDIRECTED PRN Saline Lock Insert [OM.PC] Routine Resuscitation Status Routine 06/16/21 11:30 Oxytocin/Normal Saline [Pitocin in NS 20 Units/1,000 ML] 20 unit in 1,000 ml IV TITRATE 06/16/21 12:26 Ibuprofen [Motrin] 600 mg PO Q8H PRN 06/16/21 12:44 Acetaminophen [TylenoL] 650 mg PO Q4H PRN Benzocaine [[id number] 20% [place]] See Dose Instructions TOP Q4H PRN Assess Lochia [WOMSER] Per Unit Routine Assess Uterine Involution [WOMSER] Per Unit Routine 06/16/21 12:45 Patient Status [ADT] Routine Vital Signs [RC] PFP Acetaminophen [TylenoL] 650 mg PO DAILY 06/16/21 12:46 Perineal Care [OM.PC] Per Unit Routine - Assessment Assessment:: 06/16/2021 31 yo [id number] delivered a viable female infant at approximately 38 5/7 gestational weeks Insufficient care UDS positive History of History of drug dependence and treatment History of Meconium Fluid Unknown GBS status Social Problem - Plan Plan:: 06/16/2021 Routine cares Social service consult
--- NOTE | 2021-06-16 15:48 | PCM.PNPP ---
- General Info Date of Service: 06/16/21 Functional Status: Reports: Pain Controlled - Review of Systems General: Reports: No Symptoms HEENT: Reports: No Symptoms Pulmonary: Reports: No Symptoms Cardiovascular: Reports: No Symptoms Gastrointestinal: Reports: No Symptoms Genitourinary: Reports: No Symptoms Musculoskeletal: Reports: No Symptoms Skin: Reports: No Symptoms Neurological: Reports: No Symptoms Psychiatric: Reports: No Symptoms - General Info Date of Service: 06/16/21 - Patient Data Vital Signs - Most Recent: Last Vital Signs Temp 37.4 C 06/16/21 13:00 Pulse 110 H 06/16/21 13:00 Resp 18 06/16/21 13:00 BP 127/80 06/16/21 12:18 Pulse Ox 100 06/16/21 13:00 Weight - Most Recent: 136.078 kg Lab Results - Last 24 Hours: Laboratory Results - last 24 hr 06/16/21 06/16/21 06/16/21 Range/Units 11:07 11:27 11:27 WBC (4.5-11.0) K/uL RBC (3.30-5.50) M/uL Hgb (12.0-15.0) g/dL Hct (36.0-48.0) % MCV (80-98) fL MCH (27-31) pg MCHC (32-36) % Plt Count (150-400) K/uL Neut % (Auto) (36-66) % Lymph % (Auto) (24-44) % [place] % (Auto) (2-6) % Eos % (Auto) (2-4) % Baso % (Auto) (0-1) % Urine Color Red A (YELLOW) Urine Appearance Cloudy A (CLEAR) Urine pH 6.5 (5.0-8.0) Ur Specific [place] >= 1.030 (1.008-1.030) Urine Protein >=300 H (NEGATIVE) mg/dL Urine Glucose (UA) 100 H (NEGATIVE) mg/dL Urine Ketones 40 H (NEGATIVE) mg/dL Urine Occult Blood Large H (NEGATIVE) Urine Nitrite Negative (NEGATIVE) Urine Bilirubin Small H (NEGATIVE) Urine Urobilinogen 0.2 (0.2-1.0) EU/dL Ur Leukocyte Esterase Negative (NEGATIVE) Urine RBC Packed H (0-5) Urinalysis Comment Urine Opiates Screen Negative (NEGATIVE) Ur Oxycodone Screen Negative (NEGATIVE) Urine Methadone Screen Presumptive positive H (NEGATIVE) Ur Propoxyphene Screen Negative (NEGATIVE) Ur Barbiturates Screen Negative (NEGATIVE) Ur Tricyclics Screen Presumptive positive H (NEGATIVE) Ur Phencyclidine Scrn Negative (NEGATIVE) Ur Amphetamine Screen Presumptive positive H (NEGATIVE) U Methamphetamines Scrn Presumptive positive H (NEGATIVE) Urine MDMA Screen Negative (NEGATIVE) U Benzodiazepines Scrn Negative (NEGATIVE) U Cocaine Metab Screen Negative (NEGATIVE) U Marijuana (THC) Screen Presumptive positive H (NEGATIVE) SARS CoV-2 RNA Rapid DERIK Blood Type A POSITIVE Gel Antibody Screen Negative Crossmatch See Detail 06/16/21 06/16/21 Range/Units 11:27 12:04 WBC 11.9 H (4.5-11.0) K/uL RBC 3.63 (3.30-5.50) M/uL Hgb 10.7 L D (12.0-15.0) g/dL Hct 32.1 L (36.0-48.0) % MCV 88 (80-98) fL MCH 30 (27-31) pg MCHC 33 (32-36) % Plt Count 203 (150-400) K/uL Neut % (Auto) 74.5 H (36-66) % Lymph % (Auto) 20.2 L (24-44) % [place] % (Auto) 4.7 (2-6) % Eos % (Auto) 0.5 L (2-4) % Baso % (Auto) 0.1 (0-1) % Urine Color (YELLOW) Urine Appearance (CLEAR) Urine pH (5.0-8.0) Ur Specific [place] (1.008-1.030) Urine Protein (NEGATIVE) mg/dL Urine Glucose (UA) (NEGATIVE) mg/dL Urine Ketones (NEGATIVE) mg/dL Urine Occult Blood (NEGATIVE) Urine Nitrite (NEGATIVE) Urine Bilirubin (NEGATIVE) Urine Urobilinogen (0.2-1.0) EU/dL Ur Leukocyte Esterase (NEGATIVE) Urine RBC (0-5) Urinalysis Comment Urine Opiates Screen (NEGATIVE) Ur Oxycodone Screen (NEGATIVE) Urine Methadone Screen (NEGATIVE) Ur Propoxyphene Screen (NEGATIVE) Ur Barbiturates Screen (NEGATIVE) Ur Tricyclics Screen (NEGATIVE) Ur Phencyclidine Scrn (NEGATIVE) Ur Amphetamine Screen (NEGATIVE) U Methamphetamines Scrn (NEGATIVE) Urine MDMA Screen (NEGATIVE) U Benzodiazepines Scrn (NEGATIVE) U Cocaine Metab Screen (NEGATIVE) U Marijuana (THC) Screen (NEGATIVE) SARS CoV-2 RNA Rapid DERIK Negative Blood Type Gel Antibody Screen Crossmatch Med Orders - Current: Current Medications Acetaminophen (Acetaminophen 325 Mg Tab) 650 mg PO DAILY [facility] Last Admin: 06/16/21 13:50 Dose: Not Given Documented by: Acetaminophen (Acetaminophen 325 Mg Tab) 650 mg PO Q4H PRN PRN Reason: mild pain or fever Benzocaine (Benzocaine 20% Top [place] 56 Gm Bottle) 0 gm TOP Q4H PRN PRN Reason: PERINEAL PAIN Oxytocin/Sodium Chloride (Pitocin In Ns 20 Units/1,000 Ml) 20 unit in 1,000 mls @ 2,997 mls/hr IV TITRATE JENNIFER; Protocol Last Admin: 06/16/21 10:55 Dose: 999 munits/min, 2,997 mls/hr Documented by: Ibuprofen (Ibuprofen 600 Mg Tab) 600 mg PO Q8H PRN PRN Reason: Pain Sodium Chloride (Sodium Chloride 0.9% 10 Ml Syringe) 10 ml FLUSH ASDIRECTED PRN PRN Reason: Keep Vein Open Discontinued Medications Carboprost Tromethamine (Carboprost Tromethamine 250 Mcg/1 Ml Amp) Confirm Administered Dose 250 mcg .ROUTE .STK-MED ONE Stop: 06/16/21 10:58 Last Admin: 06/16/21 11:25 Dose: Not Given Documented by: Emollient Ointment (Lanolin 100% Cream 40 Gm Tube) 1 gm TOP ONETIME ONE Stop: 06/16/21 12:45 Last Admin: 06/16/21 13:50 Dose: Not Given Documented by: Oxytocin/Sodium Chloride (Pitocin In Ns 20 Units/1,000 Ml) Confirm Administered Dose 20 unit in 1,000 mls @ as directed .ROUTE .STK-MED ONE Stop: 06/16/21 10:56 Last Admin: 06/16/21 11:24 Dose: Not Given Documented by: Tranexamic Acid 1,000 mg/ (Sodium Chloride) 60 mls @ 240 mls/hr IV ONETIME ONE Stop: 06/16/21 12:14 Last Admin: 06/16/21 12:13 Dose: 240 mls/hr Documented by: Methylergonovine Maleate (Methylergonovine 0.2 Mg/1 Ml Amp) Confirm Administered Dose 0.2 mg .ROUTE .STK-MED ONE Stop: 06/16/21 10:58 Last Admin: 06/16/21 11:25 Dose: Not Given Documented by: Methylergonovine Maleate (Methylergonovine 0.2 Mg/1 Ml Amp) 0.2 mg IM ONETIME ONE Stop: 06/16/21 11:01 Last Admin: 06/16/21 12:12 Dose: 0.2 mg Documented by: Misoprostol (Misoprostol 200 Mcg Tab) Confirm Administered Dose 800 mcg .ROUTE .STK-MED ONE Stop: 06/16/21 10:58 Last Admin: 06/16/21 11:24 Dose: Not Given Documented by: Misoprostol (Misoprostol 200 Mcg Tab) 800 mcg RECTAL ONETIME ONE Stop: 06/16/21 11:19 Last Admin: 06/16/21 12:12 Dose: 800 mcg Documented by: Neha Bridges (Neha Bridges Medicated Pads 100/Jar) 1 pad TOP ONETIME ONE Stop: 06/16/21 12:45 Last Admin: 06/16/21 13:50 Dose: Not Given Documented by: - Interaction Support Person: Friend - Recovery Exam Fundal Tone: Firms with Massage Fundal Level: 1 Fingerbreadths Above Umbilicus Fundal Placement: Midline Lochia Amount: Large Lochia Color: [place]/Red Episiotomy/Laceration: None - Exam General: Alert, Oriented HEENT: Pupils Equal Neck: Supple Lungs: Clear to Auscultation, Normal Respiratory Effort Cardiovascular: Regular Rate, Regular Rhythm GI/Abdominal Exam: Normal Bowel Sounds, Soft, Non-Tender, No Organomegaly, No Distention, No Abnormal Bruit, No Mass, Pelvis Stable Extremities: Normal Inspection, Normal Range of Motion, Non-Tender, No Pedal Edema, Normal Capillary Refill Skin: Warm, Dry, Intact Neurological: No New Focal Deficit Psy/Mental Status: Alert, Normal Affect, Normal Mood - Problem List & Annotations (1) Social problem SNOMED Code(s): 094801134 Code(s): Z65.9 - PROBLEM RELATED TO UNSPECIFIED PSYCHOSOCIAL CIRCUMSTANCES Status: Acute Current Visit: Yes (2) Meconium in amniotic fluid SNOMED Code(s): 618840796 Code(s): P96.83 - MECONIUM STAINING Status: Acute Current Visit: Yes (3) Drug use affecting in third trimester SNOMED Code(s): 46128874, 83924089, 893812613 Code(s): O99.323 - DRUG USE COMPLICATING , THIRD TRIMESTER Status: Acute Current Visit: Yes (4) Limited care in third trimester SNOMED Code(s): 622687437, 105559372 Code(s): O09.33 - SUPRVSN OF PREG W INSUFFICIENT ANTENAT CARE, THIRD TRIMESTER Status: Acute Current Visit: Yes (5) SNOMED Code(s): 07488531 Code(s): Z34.90 - ENCNTR FOR SUPRVSN OF NORMAL , UNSP, UNSP TRIMESTER Status: Acute Current Visit: Yes Qualifiers: Weeks of gestation: 38 weeks Qualified Code(s): Z3A.38 - 38 weeks gestation of (6) Drug abuse and dependence SNOMED Code(s): 8630072 Code(s): F19.20 - OTHER PSYCHOACTIVE SUBSTANCE DEPENDENCE, UNCOMPLICATED Status: Acute Current Visit: Yes (7) History of SNOMED Code(s): 308790242 Code(s): Z87.59 - PERSONAL HISTORY OF COMP OF PREG, CHLDBRTH AND THE PUERP Status: Acute Current Visit: Yes (8) hemorrhage, delivered SNOMED Code(s): 70962769, 606253306 Code(s): O72.1 - OTHER IMMEDIATE HEMORRHAGE Status: Acute Current Visit: Yes (9) (vaginal after ) SNOMED Code(s): 778398825 Code(s): O34.219 - MATERNAL CARE FOR UNSP TYPE SCAR FROM PREVIOUS DEL Status: Acute Current Visit: Yes - Problem List Review Problem List Initiated/Reviewed/Updated: Yes - My Orders Last 24 Hours: My Active Orders 06/16/21 11:07 PATIENT RETYPE [BBK] Routine RED BLOOD CELLS LP [BBK] Routine TYPE AND SCREEN [BBK] Routine 06/16/21 11:27 Patient Status [ADT] Routine Non Stress Test [RC] Click to Edit Notify Provider Vital Signs [RC] PRN Notify Provider [RC] PRN Up ad [place] [RC] ASDIRECTED Vital Signs [RC] PER UNIT ROUTINE Sodium Chloride 0.9% [Saline Flush] 10 ml FLUSH ASDIRECTED PRN Saline Lock Insert [OM.PC] Routine Resuscitation Status Routine 06/16/21 11:30 Oxytocin/Normal Saline [Pitocin in NS 20 Units/1,000 ML] 20 unit in 1,000 ml IV TITRATE 06/16/21 12:26 Ibuprofen [Motrin] 600 mg PO Q8H PRN 06/16/21 12:44 Acetaminophen [TylenoL] 650 mg PO Q4H PRN Benzocaine [Upsp-Q-Becchmr 20% [place]] See Dose Instructions TOP Q4H PRN Assess Lochia [WOMSER] Per Unit Routine Assess Uterine Involution [WOMSER] Per Unit Routine 06/16/21 12:45 Patient Status [ADT] Routine Vital Signs [RC] PFP Acetaminophen [TylenoL] 650 mg PO DAILY 06/16/21 12:46 Perineal Care [OM.PC] Per Unit Routine - Assessment Assessment:: 06/16/2021 31 yo [id number] delivered a viable female at approximately 38 5/7 gestational weeks Insufficient care UDS positive History of History of drug dependence and treatment History of Meconium Fluid Unknown GBS status Social Problem 06/16/2021@1100 Patient continues to have a trickly of blood with occasional clots total now over 2000mls of loss VSS and patient states no dizziness or other symptoms Patient still refuses to allow vaginal exam Consulted with [facility] in [place] on concern for need for d&C and possible cervical laceration and they stated to vaginal pack and send by ambulance they are happy to see her Patient refused to allow vaginal packing, since still bleeding initiated TXA by weight Decision made to transport patient to [place] [facility] for higher level of care Patient did agree - Plan Plan:: 06/16/2021 Routine cares Social service consult 06/16/2021 Continue to monitor and weigh all blood loss Continue IV fluids Continue to monitor VSS Plan to discharge to ambulance crew and transport to at this time
--- NOTE | 2021-06-16 15:55 | PCM.PNPP ---
- General Info Date of Service: 06/16/21 - Patient Data Vital Signs - Most Recent: Last Vital Signs Temp 37.4 C 06/16/21 13:00 Pulse 110 H 06/16/21 13:00 Resp 18 06/16/21 13:00 BP 127/80 06/16/21 12:18 Pulse Ox 100 06/16/21 13:00 Weight - Most Recent: 136.078 kg Lab Results - Last 24 Hours: Laboratory Results - last 24 hr 06/16/21 06/16/21 06/16/21 Range/Units 11:07 11:27 11:27 WBC (4.5-11.0) K/uL RBC (3.30-5.50) M/uL Hgb (12.0-15.0) g/dL Hct (36.0-48.0) % MCV (80-98) fL MCH (27-31) pg MCHC (32-36) % Plt Count (150-400) K/uL Neut % (Auto) (36-66) % Lymph % (Auto) (24-44) % Vance % (Auto) (2-6) % Eos % (Auto) (2-4) % Baso % (Auto) (0-1) % Urine Color Red A (YELLOW) Urine Appearance Cloudy A (CLEAR) Urine pH 6.5 (5.0-8.0) Ur Specific [place] >= 1.030 (1.008-1.030) Urine Protein >=300 H (NEGATIVE) mg/dL Urine Glucose (UA) 100 H (NEGATIVE) mg/dL Urine Ketones 40 H (NEGATIVE) mg/dL Urine Occult Blood Large H (NEGATIVE) Urine Nitrite Negative (NEGATIVE) Urine Bilirubin Small H (NEGATIVE) Urine Urobilinogen 0.2 (0.2-1.0) EU/dL Ur Leukocyte Esterase Negative (NEGATIVE) Urine RBC Packed H (0-5) Urinalysis Comment Urine Opiates Screen Negative (NEGATIVE) Ur Oxycodone Screen Negative (NEGATIVE) Urine Methadone Screen Presumptive positive H (NEGATIVE) Ur Propoxyphene Screen Negative (NEGATIVE) Ur Barbiturates Screen Negative (NEGATIVE) Ur Tricyclics Screen Presumptive positive H (NEGATIVE) Ur Phencyclidine Scrn Negative (NEGATIVE) Ur Amphetamine Screen Presumptive positive H (NEGATIVE) U Methamphetamines Scrn Presumptive positive H (NEGATIVE) Urine MDMA Screen Negative (NEGATIVE) U Benzodiazepines Scrn Negative (NEGATIVE) U Cocaine Metab Screen Negative (NEGATIVE) U Marijuana (THC) Screen Presumptive positive H (NEGATIVE) SARS CoV-2 RNA Rapid DERIK Blood Type A POSITIVE Gel Antibody Screen Negative Crossmatch See Detail 06/16/21 06/16/21 Range/Units 11:27 12:04 WBC 11.9 H (4.5-11.0) K/uL RBC 3.63 (3.30-5.50) M/uL Hgb 10.7 L D (12.0-15.0) g/dL Hct 32.1 L (36.0-48.0) % MCV 88 (80-98) fL MCH 30 (27-31) pg MCHC 33 (32-36) % Plt Count 203 (150-400) K/uL Neut % (Auto) 74.5 H (36-66) % Lymph % (Auto) 20.2 L (24-44) % Vance % (Auto) 4.7 (2-6) % Eos % (Auto) 0.5 L (2-4) % Baso % (Auto) 0.1 (0-1) % Urine Color (YELLOW) Urine Appearance (CLEAR) Urine pH (5.0-8.0) Ur Specific [place] (1.008-1.030) Urine Protein (NEGATIVE) mg/dL Urine Glucose (UA) (NEGATIVE) mg/dL Urine Ketones (NEGATIVE) mg/dL Urine Occult Blood (NEGATIVE) Urine Nitrite (NEGATIVE) Urine Bilirubin (NEGATIVE) Urine Urobilinogen (0.2-1.0) EU/dL Ur Leukocyte Esterase (NEGATIVE) Urine RBC (0-5) Urinalysis Comment Urine Opiates Screen (NEGATIVE) Ur Oxycodone Screen (NEGATIVE) Urine Methadone Screen (NEGATIVE) Ur Propoxyphene Screen (NEGATIVE) Ur Barbiturates Screen (NEGATIVE) Ur Tricyclics Screen (NEGATIVE) Ur Phencyclidine Scrn (NEGATIVE) Ur Amphetamine Screen (NEGATIVE) U Methamphetamines Scrn (NEGATIVE) Urine MDMA Screen (NEGATIVE) U Benzodiazepines Scrn (NEGATIVE) U Cocaine Metab Screen (NEGATIVE) U Marijuana (THC) Screen (NEGATIVE) SARS CoV-2 RNA Rapid DERIK Negative Blood Type Gel Antibody Screen Crossmatch Med Orders - Current: Current Medications Acetaminophen (Acetaminophen 325 Mg Tab) 650 mg PO DAILY JENNIFER Last Admin: 06/16/21 13:50 Dose: Not Given Documented by: Acetaminophen (Acetaminophen 325 Mg Tab) 650 mg PO Q4H PRN PRN Reason: mild pain or fever Benzocaine (Benzocaine 20% Top Hunt 56 Gm Bottle) 0 gm TOP Q4H PRN PRN Reason: PERINEAL PAIN Oxytocin/Sodium Chloride (Pitocin In Ns 20 Units/1,000 Ml) 20 unit in 1,000 mls @ 2,997 mls/hr IV TITRATE JENNIFER; Protocol Last Admin: 06/16/21 10:55 Dose: 999 munits/min, 2,997 mls/hr Documented by: Ibuprofen (Ibuprofen 600 Mg Tab) 600 mg PO Q8H PRN PRN Reason: Pain Sodium Chloride (Sodium Chloride 0.9% 10 Ml Syringe) 10 ml FLUSH ASDIRECTED PRN PRN Reason: Keep Vein Open Discontinued Medications Carboprost Tromethamine (Carboprost Tromethamine 250 Mcg/1 Ml Amp) Confirm Administered Dose 250 mcg .ROUTE .STK-MED ONE Stop: 06/16/21 10:58 Last Admin: 06/16/21 11:25 Dose: Not Given Documented by: Emollient Ointment (Lanolin 100% Cream 40 Gm Tube) 1 gm TOP ONETIME ONE Stop: 06/16/21 12:45 Last Admin: 06/16/21 13:50 Dose: Not Given Documented by: Oxytocin/Sodium Chloride (Pitocin In Ns 20 Units/1,000 Ml) Confirm Administered Dose 20 unit in 1,000 mls @ as directed .ROUTE .STK-MED ONE Stop: 06/16/21 10:56 Last Admin: 06/16/21 11:24 Dose: Not Given Documented by: Tranexamic Acid 1,000 mg/ (Sodium Chloride) 60 mls @ 240 mls/hr IV ONETIME ONE Stop: 06/16/21 12:14 Last Admin: 06/16/21 12:13 Dose: 240 mls/hr Documented by: Methylergonovine Maleate (Methylergonovine 0.2 Mg/1 Ml Amp) Confirm Administered Dose 0.2 mg .ROUTE .STK-MED ONE Stop: 06/16/21 10:58 Last Admin: 06/16/21 11:25 Dose: Not Given Documented by: Methylergonovine Maleate (Methylergonovine 0.2 Mg/1 Ml Amp) 0.2 mg IM ONETIME ONE Stop: 06/16/21 11:01 Last Admin: 06/16/21 12:12 Dose: 0.2 mg Documented by: Misoprostol (Misoprostol 200 Mcg Tab) Confirm Administered Dose 800 mcg .ROUTE .STK-MED ONE Stop: 06/16/21 10:58 Last Admin: 06/16/21 11:24 Dose: Not Given Documented by: Misoprostol (Misoprostol 200 Mcg Tab) 800 mcg RECTAL ONETIME ONE Stop: 06/16/21 11:19 Last Admin: 06/16/21 12:12 Dose: 800 mcg Documented by: Neha Bridges (Witch Yuliana Medicated Pads 100/Jar) 1 pad TOP ONETIME ONE Stop: 06/16/21 12:45 Last Admin: 06/16/21 13:50 Dose: Not Given Documented by: - Infant Interaction Support Person: Friend - Recovery Exam Fundal Tone: Firms with Massage Fundal Level: 1 Fingerbreadths Above Umbilicus Fundal Placement: Midline Lochia Amount: Large Lochia Color: Rubra/Red Episiotomy/Laceration: None - Problem List & Annotations (1) Social problem SNOMED Code(s): 323899391 Code(s): Z65.9 - PROBLEM RELATED TO UNSPECIFIED PSYCHOSOCIAL CIRCUMSTANCES Status: Acute Current Visit: Yes (2) Meconium in amniotic fluid SNOMED Code(s): 712661189 Code(s): P96.83 - MECONIUM STAINING Status: Acute Current Visit: Yes (3) Drug use affecting in third trimester SNOMED Code(s): 20390212, 32443614, 799864119 Code(s): O99.323 - DRUG USE COMPLICATING , THIRD TRIMESTER Status: Acute Current Visit: Yes (4) Limited care in third trimester SNOMED Code(s): 932744660, 729033421 Code(s): O09.33 - SUPRVSN OF PREG W INSUFFICIENT ANTENAT CARE, THIRD TRIMESTER Status: Acute Current Visit: Yes (5) SNOMED Code(s): 89230889 Code(s): Z34.90 - ENCNTR FOR SUPRVSN OF NORMAL , UNSP, UNSP TRIMESTER Status: Acute Current Visit: Yes Qualifiers: Weeks of gestation: 38 weeks Qualified Code(s): Z3A.38 - 38 weeks gestation of (6) Drug abuse and dependence SNOMED Code(s): 7910508 Code(s): F19.20 - OTHER PSYCHOACTIVE SUBSTANCE DEPENDENCE, UNCOMPLICATED Status: Acute Current Visit: Yes (7) History of SNOMED Code(s): 441861848 Code(s): Z87.59 - PERSONAL HISTORY OF COMP OF PREG, CHLDBRTH AND THE PUERP Status: Acute Current Visit: Yes (8) hemorrhage, delivered SNOMED Code(s): 57640046, 174059739 Code(s): O72.1 - OTHER IMMEDIATE HEMORRHAGE Status: Acute Current Visit: Yes (9) (vaginal after ) SNOMED Code(s): 112528966 Code(s): O34.219 - MATERNAL CARE FOR UNSP TYPE SCAR FROM PREVIOUS DEL Status: Acute Current Visit: Yes - Problem List Review Problem List Initiated/Reviewed/Updated: Yes - My Orders Last 24 Hours: My Active Orders 06/16/21 11:07 PATIENT RETYPE [BBK] Routine RED BLOOD CELLS LP [BBK] Routine TYPE AND SCREEN [BBK] Routine 06/16/21 11:27 Patient Status [ADT] Routine Non Stress Test [RC] Click to Edit Notify Provider Vital Signs [RC] PRN Notify Provider [RC] PRN Up ad [place] [RC] ASDIRECTED Vital Signs [RC] PER UNIT ROUTINE Sodium Chloride 0.9% [Saline Flush] 10 ml FLUSH ASDIRECTED PRN Saline Lock Insert [OM.PC] Routine Resuscitation Status Routine 06/16/21 11:30 Oxytocin/Normal Saline [Pitocin in NS 20 Units/1,000 ML] 20 unit in 1,000 ml IV TITRATE 06/16/21 12:26 Ibuprofen [Motrin] 600 mg PO Q8H PRN 06/16/21 12:44 Acetaminophen [TylenoL] 650 mg PO Q4H PRN Benzocaine [[id number] 20% Hunt] See Dose Instructions TOP Q4H PRN Assess Lochia [WOMSER] Per Unit Routine Assess Uterine Involution [WOMSER] Per Unit Routine 06/16/21 12:45 Patient Status [ADT] Routine Vital Signs [RC] PFP Acetaminophen [TylenoL] 650 mg PO DAILY 06/16/21 12:46 Perineal Care [OM.PC] Per Unit Routine - Assessment Assessment:: 06/16/2021 31 yo [id number] delivered a viable female at approximately 38 5/7 gestational weeks Insufficient care UDS positive History of History of drug dependence and treatment History of Meconium Fluid Unknown GBS status Social Problem 06/16/2021@1100 Patient continues to have a trickly of blood with occasional clots total now over 2000mls of loss VSS and patient states no dizziness or other symptoms Patient still refuses to allow vaginal exam Consulted with [facility] in [place] on concern for need for d&C and possible cervical laceration and they stated to vaginal pack and send by ambulance they are happy to see her Patient refused to allow vaginal packing, since still bleeding initiated TXA by weight Decision made to transport patient to [place] [facility] for higher level of care Patient did agree 06/16/2021@ [id number] Ambulance crew here report given, patient currently stable Care given to crew To [place] labor and delivery for transfer - Plan Plan:: 06/16/2021 Routine cares Social service consult 06/16/2021 Continue to monitor and weigh all blood loss Continue IV fluids Continue to monitor VSS Plan to discharge to ambulance crew and transport to at this time
== END 2021-06-16 13:00 | DRG 806 ==
LOC: JP.OBCHECK 10:50 → JP.OB 10:51
PROVIDERS: ADMIT Advanced Practice Midwife; ATTEND Advanced Practice Midwife
PROC: 10E0XZZ Delivery of Products of Conception, External Approach (ICD-10-PCS; principal; 2021-06-16)
PROC: 0HQ9XZZ Repair Perineum Skin, External Approach (ICD-10-PCS; 2021-06-16)
DX: O99.324 Drug use complicating childbirth (principal); O72.1 Other immediate postpartum hemorrhage; Z37.0 Single live birth; O77.0 Labor and delivery complicated by meconium in amniotic fluid; O69.81X0 Labor and delivery complicated by cord around neck, without compression, not applicable or unspecified; O70.0 First degree perineal laceration during delivery; F12.20 Cannabis dependence, uncomplicated; Z20.822 Contact with and (suspected) exposure to COVID-19; O99.52 Diseases of the respiratory system complicating childbirth; J45.909 Unspecified asthma, uncomplicated; O99.214 Obesity complicating childbirth; Z3A.38 38 weeks gestation of pregnancy; Z88.5 Allergy status to narcotic agent; Z88.0 Allergy status to penicillin
CPT/HCPCS: 36415; 80305-QW; 81001; 85025; 86850; 86900; 86901; 86920; 86922; 99211; A9270-GY; J2210; J2590; U0002

== ENCOUNTER 2022-09-14 16:33 | Emergency (ER) | payer MEDICAID ==
[2022-09-14] MEDS ORDERED: Lidocaine 2% Viscous Solution 15 ML UD PO STA (18:15)
[2022-09-14 19:03] LABS: CORONAVIRUS COVID-19 NAA NEGATIVE (NEGATIVE)
[2022-09-14] MEDS ORDERED: Lidocaine 2% Viscous Solution 15 ML UD PO ONE (19:12)
[2022-09-14] MEDS ORDERED: Cephalexin 250 MG Cap PO ONE (19:12)
== END 2022-09-14 19:40 | disposition home or self-care (01) ==
LOC: JP.ED 16:33
DX: J02.0 Streptococcal pharyngitis (principal); J45.909 Unspecified asthma, uncomplicated; E66.9 Obesity, unspecified; Z68.43 Body mass index [BMI] 50.0-59.9, adult; Z72.0 Tobacco use; Z88.5 Allergy status to narcotic agent; Z88.6 Allergy status to analgesic agent; Z88.0 Allergy status to penicillin; Z79.899 Other long term (current) drug therapy; Z20.822 Contact with and (suspected) exposure to COVID-19
CPT/HCPCS: 0241U; 36415; 80048; 85025; 87880; 99283; A9270

== ENCOUNTER 2022-12-09 02:22 | Emergency (ER) | payer MEDICAID ==
[2022-12-09] MEDS ORDERED: Ketorolac 30 MG/ML SDV IVPUSH ONE (02:24)
[2022-12-09 02:54] LABS: ESTIMATED GFR 99 mL/min (>60); TROPONIN I HIGH SENSITIVITY 5.8 pg/mL (<=60.3)
[2022-12-09] MEDS ORDERED: Sodium Chloride 0.9% 10 ML Syringe FLUSH PRN (03:39)
[2022-12-09] MEDS ORDERED: Sodium Chloride 0.9% 100 ML IV SCH (03:45)
[2022-12-09] MEDS ORDERED: Iopamidol 755 Mg/ML 100 ML Bottle IV SCH (03:45)
== END 2022-12-09 08:07 | disposition home or self-care (01) ==
LOC: JP.ED 02:22
DX: B33.0 Epidemic myalgia (principal); R09.1 Pleurisy; J45.909 Unspecified asthma, uncomplicated; E66.9 Obesity, unspecified; Z68.43 Body mass index [BMI] 50.0-59.9, adult; Z72.0 Tobacco use; Z88.5 Allergy status to narcotic agent; Z88.0 Allergy status to penicillin; Z79.899 Other long term (current) drug therapy
CPT/HCPCS: 36415; 71275; 80053; 84484; 85025; 85379; 85610; 85730; 93005; 96374; 99285; J1885; J3490; Q9967

== ENCOUNTER 2023-04-20 14:14 | Emergency (ER) | payer MEDICAID | END 2023-04-20 16:30 | disposition left against medical advice (07) | LOC: JP.ED 14:14 | DX: Z53.21 Procedure and treatment not carried out due to patient leaving prior to being seen by health care provider (principal) ==

== ENCOUNTER 2023-08-04 17:49 | Emergency (ER) | payer MEDICAID | END 2023-08-04 18:46 | disposition home or self-care (01) | LOC: JP.ED 17:49 | DX: K04.7 Periapical abscess without sinus (principal); K02.9 Dental caries, unspecified; E66.9 Obesity, unspecified; Z68.42 Body mass index [BMI] 45.0-49.9, adult; Z88.0 Allergy status to penicillin; Z88.5 Allergy status to narcotic agent | CPT/HCPCS: 99283 ==

== ENCOUNTER 2023-09-28 02:26 | Emergency (ER) | payer MEDICAID ==
[2023-09-28] MEDS ORDERED: methylPREDNISolone Sodium Succinate 40 MG/1 ML SDV IM ONE (02:51)
[2023-09-28] MEDS ORDERED: Albuterol/Ipratropium 3.0-0.5 MG/3 ML Neb Soln NEB ONE (02:51)
[2023-09-28] MEDS ORDERED: Ondansetron 4 MG Tab.DIS PO ONE (02:54)
[2023-09-28 03:01] LABS: BASOPHILS ABSOLUTE AUTO 0.04 K/uL (0.00-0.10); BASOPHILS PERCENT AUTO 0.2 % (0.1-1.3); EOSINOPHILS ABSOLUTE AUTO 0.11 K/uL (0.00-0.40); EOSINOPHILS PERCENT AUTO 0.6 % (0.0-5.4); HEMATOCRIT 36.2 % (34.3-46.0); HEMOGLOBIN 11.9 g/dL (11.2-15.5); IMMATURE GRAN ABSOLUTE AUTO 0.13 K/uL (0.00-0.23); IMMATURE GRAN PERCENT AUTO 0.7 % (0.0-0.7); LYMPHOCYTES ABSOLUTE AUTO 2.88 K/uL (0.8-3.3); MEAN CORPUSCULAR HEMOGLOBIN 25.3 pg (31.6-35.5); MEAN CORPUSCULAR HGB CONC 32.9 g/dL (31.6-35.5); MEAN CORPUSCULAR VOLUME 76.9 fL (81.4-99.0); MONOCYTES ABSOLUTE AUTO 0.76 K/uL (0.20-0.90); MONOCYTES PERCENT AUTO 4.2 % (3.3-12.6); NEUTROPHILS ABSOLUTE AUTO 14.03 K/uL (1.0-7.6); NEUTROPHILS PERCENT AUTO 78.3 % (40.0-78.1); PLATELET COUNT,PLT 277 K/uL (130-375); RED BLOOD CELL COUNT 4.71 M/uL (3.77-5.24)
[2023-09-28 03:17] LABS: CALCIUM 8.5 mg/dL (8.5-10.1); CREATININE 0.9 mg/dL (0.6-1.0); EST CRCL DRUG DOSING (CG) 78.51 mL/min; POTASSIUM,K 3.5 mmol/L (3.6-5.2)
[2023-09-28 03:18] LABS: ANION GAP 15.5 mmol/L (5.0-14.0)
[2023-09-28 03:28] LABS: CORONAVIRUS COVID-19 NAA NEGATIVE (NEGATIVE); INFLUENZA A NAA NEGATIVE (NEGATIVE); INFLUENZA B NAA NEGATIVE (NEGATIVE); RESPIRATORY SYNCYTIAL VIR NAA NEGATIVE (NEGATIVE)
== END 2023-09-28 03:57 | disposition home or self-care (01) ==
LOC: JP.ED 02:26
DX: J45.21 Mild intermittent asthma with (acute) exacerbation (principal); Z20.822 Contact with and (suspected) exposure to COVID-19; Z87.891 Personal history of nicotine dependence; Z88.0 Allergy status to penicillin; Z88.5 Allergy status to narcotic agent; E66.9 Obesity, unspecified; Z68.41 Body mass index [BMI] 40.0-44.9, adult; Z88.6 Allergy status to analgesic agent
CPT/HCPCS: 0241U; 36415; 71045; 80048; 83605; 85025; 94640; 96372; 99285; J2920; Q0162; J7620